=== PATIENT | female | born 1960 | race Caucasian/White ===

== ENCOUNTER 2022-04-07 13:12 | Outpatient (CLI) | payer OTHER, SELFPAY ==
--- NOTE | 2022-04-07 13:20 | CRLHL7_ITS ---
For Patients: As a result of the Century Cures Act, medical imaging exams and procedure reports are released immediately into your electronic medical record. You may view this report before your referring provider. If you have questions, please contact your health care provider. BILATERAL SCREENING MAMMOGRAM WITH COMPUTER-AIDED DETECTION AND TOMOSYNTHESIS TECHNIQUE: CC and MLO views were obtained. These mammographic images have been obtained using full-field digital technique. These mammographic images were interpreted with the benefit of computer-aided detection. Breast Tomosynthesis was used in this interpretation. COMPARISON FILM: 03/27/2021, 03/22/2020, 02/21/2019. FINDINGS: The breasts are heterogeneously dense, which may obscure small masses IMPRESSION: There is no radiographic evidence for malignancy. ASSESSMENT: BI-RADS Category 2: Benign RECOMMENDATION: Routine screening mammogram in 1 year. A lay language report of this examination will be provided to the patient. Jitendra Olivera M.D. Diagnostic Radiologist [email or web address] Transcribed: 7:26 p.m. TONA/Dictated by: Jitendra Olivera MD @ 04/08/2022 11:29:00 AM (Electronically Signed)
== END 2022-04-07 13:13 | disposition home or self-care (01) ==
LOC: MAMMO 13:14
PROVIDERS: PCP Internal Medicine; Visit Provider Internal Medicine
DX: Z12.31 Encounter for screening mammogram for malignant neoplasm of breast (principal); R92.2 Inconclusive mammogram
CPT/HCPCS: 77063; 77067

== ENCOUNTER 2023-04-08 14:15 | Outpatient (CLI) | payer OTHER, SELFPAY ==
--- NOTE | 2023-04-08 14:40 | CRLHL7_ITS ---
For Patients: As a result of the Century Cures Act, medical imaging exams and procedure reports are released immediately into your electronic medical record. You may view this report before your referring provider. If you have questions, please contact your health care provider. BILATERAL SCREENING MAMMOGRAM WITH COMPUTER-AIDED DETECTION AND TOMOSYNTHESIS TECHNIQUE: CC and MLO views were obtained. These mammographic images have been obtained using full-field digital technique. These mammographic images were interpreted with the benefit of computer-aided detection. Breast Tomosynthesis was used in this interpretation. COMPARISON FILM: 04/07/22, 03/27/21, 03/22/20. FINDINGS: The breasts are extremely dense, which lowers the sensitivity of mammography IMPRESSION: There is no radiographic evidence for malignancy. ASSESSMENT: BI-RADS Category 2: Benign RECOMMENDATION: Routine screening mammogram in 1 year. A lay language report of this examination will be provided to the patient. Jitendra Olivera M.D. Diagnostic Radiologist [email or web address] TONA/Dictated by: Jitendra Olivera MD @ 04/09/2023 10:06:00 AM (Electronically Signed)
== END 2023-04-08 14:16 | disposition home or self-care (01) ==
PROVIDERS: PCP Internal Medicine; Visit Provider Internal Medicine
DX: Z12.31 Encounter for screening mammogram for malignant neoplasm of breast (principal); R92.2 Inconclusive mammogram
CPT/HCPCS: 77063; 77067

== ENCOUNTER 2023-05-20 11:30 | Outpatient (CLI) | payer OTHER, SELFPAY | END 2023-05-20 11:31 | disposition home or self-care (01) | LOC: NFLDREF 14:49 | PROVIDERS: PCP Internal Medicine; Referring Provider Internal Medicine; Visit Provider Internal Medicine | DX: R73.03 Prediabetes (principal); M85.80 Other specified disorders of bone density and structure, unspecified site; Z13.220 Encounter for screening for lipoid disorders | CPT/HCPCS: 80061; 82306; 82947 ==

== ENCOUNTER 2023-06-17 14:35 | Outpatient (CLI) | payer OTHER, SELFPAY ==
--- NOTE | 2023-06-17 15:00 | CRLHL7_ITS ---
For Patients: As a result of the Century Cures Act, medical imaging exams and procedure reports are released immediately into your electronic medical record. You may view this report before your referring provider. If you have questions, please contact your health care provider. DXA BONE MINERAL DENSITY STUDY Reason for exam: Osteopenia. Current height (inches): 63.0 Weight (lbs.): 112.0 Menopause age: 57 Ethnicity: White 1. Have you had a previous hip or vertebral fracture? No. 2. Have you had any fractures during your adult life which did not result from significant trauma (e.g., auto accident)? No. 3. Did either of your parents have a hip fracture? No. 4. Do you smoke? No. 5. Have you ever taken Glucocorticoids? No. 6. Do you have rheumatoid arthritis? No. 7. Do you have secondary osteoporosis? No. 8. Do you drink 3 or more alcoholic drinks per day? No. 9. Are you being treated for osteoporosis? No. 10. Have you ever taken any of the following medications: Actonel, Evista, Fosamax, Miacalcin, Reclast, Boniva, Forteo, HRT (i.e., estrogen/hormone therapy), Protelos, Prolia, Vitamin D, Calcium, other ??? please specify. ANSWER: Yes; vitamin D. 11. Do you have any of the following medical conditions: Anorexia or bulimia, asthma or emphysema, end stage renal disease, hyperparathyroidism, any seizure disorders, cancer, inflammatory bowel diseases, hysterectomy, other ??? please specify. ANSWER: No. 12. What was your maximum height (inches)? 63. 13. Do you perform weightbearing exercise regularly? Yes. 14. Do you regularly consume dairy products? Yes. 15. Do you drink caffeinated beverages? Yes. 16. At what age did your period start? 13. 17. Are you premenopausal? No. 18. How many full-term pregnancies have you had? 3. 19. Have you ever missed your period for more than 6 months in a row (not including or menopause)? No. TECHNIQUE: Bone mineral density study was performed using the [employer]. FINDINGS: The results of the study expressed as bone mineral density (BMD) are as follows: Lumbar Spine L1 to L4: BMD: 0.770 g/cm2. T-score: -2.5. Z-score: -0.9. Neck Left: BMD: 0.665 g/cm2. T-score: -1.7. Z-score: -0.2. Right: BMD: 0.662 g/cm2. T-score: -1.7. Z-score: -0.2. Total Left: BMD: 0.775 g/cm2. T-score: -1.4. Z-score: -0.2. Right: BMD: 0.808 g/cm2. T-score: -1.1. Z-score: 0.0. IMPRESSION: Osteoporosis. COMPARISON: Compared with scan of 02/17/2018, the bone mineral density has decreased by 12.1% at the spine and decreased by 0.8% at the hip. *Comparison exams done prior to 11/2019 were performed on different unit, [employer]. JITENDRA LEAHY M.D. Diagnostic Radiologist [email or web address] Transcribed: 7:[address]/Dictated by: Jitendra Leahy MD @ 06/17/2023 3:41:00 PM (Electronically Signed)
== END 2023-06-17 14:36 | disposition home or self-care (01) ==
PROVIDERS: PCP Internal Medicine; Visit Provider Internal Medicine
DX: M85.88 Other specified disorders of bone density and structure, other site (principal); M81.0 Age-related osteoporosis without current pathological fracture
CPT/HCPCS: 77080

== ENCOUNTER 2023-11-16 11:34 | Outpatient (CLI) | payer OTHER, SELFPAY ==
--- OUTSIDE RECORDS SUMMARY | 2023-12-03 20:38 | XMS_ITS | Clinical Summary ---
Author Organization [employer] [facility] Address [place], [place] [address] Care Team Providers Care Transitional Living Specialist Name Role Phone Pcp, No Primary Care Provider Unavailabl e Allergies Active Allergy Reactions Criticality Noted Date Comments Amoxicillin Hives 02/14/2015 Medications No known medications Active Problems Problem Noted Date Diagnosed Date Routine adult health maintenance 02/14/2015 Overview: Colonoscopy 02/2015 normal repeat in 10 years Social History Tobacco Use Types Packs/Day Years Used Date Smoking Tobacco: Never Tobacco Cessation:Counseling Given: Yes Sex and Gender Information Value Date Recorded Sex Assigned at Not on file Gender Identity Not on file Sexual Orientation Not on file Obstetrics History Last Filed Vital Signs Vital Sign Reading Time Taken Comments Blood Pressure 99/67 02/14/2015 8:48 AM CDT Pulse 71 02/14/2015 8:48 AM CDT Temperature - - Respiratory Rate - - Oxygen Saturation 100% 02/14/2015 8:48 AM CDT Inhaled Oxygen Concentration - - Weight - - Height - - Body Mass Index - - Plan of Treatment Health Maintenance Due Date Last Done Comments Tdap 12/29/1970 Depression screening for age 12+ 1971 HIV for age 15-65 12/29/1974 BMI (ht and wt on same day) for age 18+ 12/29/1977 Hepatitis C screening for age 18-79 12/29/1977 Tetanus booster 1979 Lipids for age 45-75 12/29/2004 Mammogram for age 45-75 12/29/2004 Zoster (shingles) series for age 50+ (1 of 2) 12/29/2009 COVID-19 vaccine series (2022-24 season) 2023 Influenza for age 50-64 02/13/2024 Colonoscopy through age 75 02/14/2025 02/14/2015, Pap test for age 21-65 05/24/2026 , 05/24/2023, 02/08/2018, Additional history exists Pneumococcal series for age 6-64 Aged Out No longer eligible based on patient's age to complete this topic Procedures Procedure Name Priority Date/Time Associated Diagnosis Comments HPV THIN PREP Routine 05/24/2023 8:30 AM SEISMIC PROSPECTING OBSERVER HELPER from Last 3 Months or Most Recently Relevant to Health Maintenance Results * HPV HIGH RISK (05/24/2023 8:30 AM SEISMIC PROSPECTING OBSERVER HELPER) TYPE 16 Negative Negative 05/27/2023 5:55 AM SEISMIC PROSPECTING OBSERVER HELPER [facility] TYPE 18 Negative Negative 05/27/2023 5:55 AM SEISMIC PROSPECTING OBSERVER HELPER [facility] OTHER HIGH RISK TYPES Negative Negative 05/27/2023 5:55 AM SEISMIC PROSPECTING OBSERVER HELPER [facility] Other (Cervical) 05/24/2023 8:30 AM SEISMIC PROSPECTING OBSERVER HELPER 05/25/2023 11:39 AM SEISMIC PROSPECTING OBSERVER HELPER Narrative [facility] - 05/27/2023 5:55 AM SEISMIC PROSPECTING OBSERVER HELPER HPV types 16, 18, 31, 33, 35, 39, 45, 51, 52, 56, 58, 59, 66 and 68 DNA were undetectable or below the pre-set threshold. Methodology: Charlie Jarrett 4800 HPV Test Giselle Jin MD [facility] [address] [place] [address], from Last 3 Months or Most Recently Relevant to Health Maintenance Care Teams Transitional Living Specialist Relationship Specialty Start Date End Date Pcp, No . PCP - General 02/13/15
== END 2023-11-16 11:35 | disposition home or self-care (01) ==
LOC: NFLDREF 12-03 20:37
PROVIDERS: PCP Internal Medicine; Referring Provider Internal Medicine; Visit Provider Internal Medicine
DX: M85.88 Other specified disorders of bone density and structure, other site (principal)
CPT/HCPCS: 82306

== ENCOUNTER 2024-04-11 12:52 | Outpatient (CLI) | payer OTHER, SELFPAY ==
--- OUTSIDE RECORDS SUMMARY | 2024-04-11 12:55 | XMS_ITS | Clinical Summary ---
Author Organization [employer] [facility] Address [place], [place] [address] Care Team Providers Care Technical Consultant Name Role Phone Pcp, No Primary Care Provider Unavailabl e Allergies Active Allergy Reactions Criticality Noted Date Comments Amoxicillin Hives 02/14/2015 Medications No known medications Active Problems Problem Noted Date Diagnosed Date Routine adult health maintenance 02/14/2015 Overview (02/14/2015): Colonoscopy 02/2015 normal repeat in 10 years [...] (1 of 2) 12/29/2009 COVID-19 vaccine series (2023- season) 2024 Influenza for age 50-64 02/13/2024 Colonoscopy through age 75 02/14/2025 02/14/2015, Pap test for age 21-65 05/24/2026 , 05/24/2023, 02/08/2018, Additional history exists Pneumococcal series for age 6-64 Aged Out No longer eligible based on patient's age to complete this topic Procedures Procedure Name Priority Date/Time Associated Diagnosis Comments HPV HIGH RISK Routine 05/24/2023 8:30 AM FOREIGN LEGAL CONSULTANT from Last 3 Months or Most Recently Relevant to Health Maintenance Results * HPV HIGH RISK (05/24/2023 8:30 AM FOREIGN LEGAL CONSULTANT) TYPE 16 Negative Negative 05/27/2023 5:55 AM FOREIGN LEGAL CONSULTANT [facility] TYPE 18 Negative Negative 05/27/2023 5:55 AM FOREIGN LEGAL CONSULTANT [facility] OTHER HIGH RISK TYPES Negative Negative 05/27/2023 5:55 AM FOREIGN LEGAL CONSULTANT [facility] Other (Cervical) 05/24/2023 8:30 AM FOREIGN LEGAL CONSULTANT 05/25/2023 11:39 AM FOREIGN LEGAL CONSULTANT Narrative [facility] - 05/27/2023 5:55 AM FOREIGN LEGAL CONSULTANT HPV types 16, 18, 31, 33, 35, 39, 45, 51, 52, 56, 58, 59, 66 and 68 DNA were undetectable or below the pre-set threshold. Methodology: Charlie Jarrett 4800 HPV Test Giselle Jin MD [facility] [address] [place] [address], from Last 3 Months or Most Recently Relevant to Health Maintenance Care Teams Technical Consultant Relationship Specialty Start Date End Date Pcp, No . PCP - General 02/13/15
--- NOTE | 2024-04-11 13:00 | CRLHL7_ITS ---
For Patients: As a result of the Century Cures Act, medical imaging exams and procedure reports are released immediately into your electronic medical record. You may view this report before your referring provider. If you have questions, please contact your health care provider. BILATERAL SCREENING MAMMOGRAM WITH COMPUTER-AIDED DETECTION AND TOMOSYNTHESIS TECHNIQUE: CC and MLO views were obtained. These mammographic images have been obtained using full-field digital technique. These mammographic images were interpreted with the benefit of computer-aided detection. Breast Tomosynthesis was used in this interpretation. COMPARISON FILM: 04/08/23, 04/07/22, 03/27/21. FINDINGS: The breasts are extremely dense, which lowers the sensitivity of mammography IMPRESSION: There is no radiographic evidence for malignancy. ASSESSMENT: BI-RADS Category 2: Benign RECOMMENDATION: Routine screening mammogram in 1 year. A lay language report of this examination will be provided to the patient. Jitendra Olivera M.D. Diagnostic Radiologist [email or web address] TONA/Dictated by: Jitendra Olivera MD @ 04/12/2024 9:27:00 AM (Electronically Signed)
== END 2024-04-11 12:53 | disposition home or self-care (01) ==
LOC: MAMMO 12:53
PROVIDERS: PCP Internal Medicine; Visit Provider Internal Medicine
DX: Z12.31 Encounter for screening mammogram for malignant neoplasm of breast (principal); R92.343 Mammographic extreme density, bilateral breasts
CPT/HCPCS: 77063; 77067

== ENCOUNTER 2024-06-20 08:15 | Outpatient (CLI) | payer OTHER, SELFPAY | END 2024-06-20 08:16 | disposition home or self-care (01) | LOC: NFLDREF 06-21 02:17 | PROVIDERS: PCP Internal Medicine; Referring Provider Internal Medicine; Visit Provider Internal Medicine | DX: R73.03 Prediabetes (principal); M81.0 Age-related osteoporosis without current pathological fracture | CPT/HCPCS: 82306; 82947 ==